=== PATIENT | male | born 1985 | race Caucasian/White ===

== ENCOUNTER 2016-11-16 09:51 | Emergency (ER) | payer OTHER ==
[~2016-11-16] VITALS: Ht 170.2 cm; Wt 94.0 kg
[~2016-11-16 09:51] MED LIST: DIAZ5 PO; LISI-360 PO; MOBI15TA PO; PROZ20CA11 PO; REME30TA PO; TRAM50 PO; ZITH250T PO
[2016-11-16 10:01] VITALS: BP 140/102; PULSE 84; RESP 16; TEMP 99.1; O2SAT 97
[2016-11-16] MEDS ORDERED: SODIUM CHLOR 0.9% 1000 ML INJ 1,000 ML IV ONE (10:15)
[2016-11-16] MEDS ORDERED: SODIUM CHLORIDE 0.9% FLUSH 5 ML FLUSH IVF PRN (10:15)
--- NOTE | 2016-11-16 10:19 | PD ---
HPI Chief Complaint: Anxiety Time Seen by Provider: 10:13 Travel History International Travel<30 days: No Contact w/Intl Traveler<30days: No Traveled to known affect area: No History of Present Illness HPI 31-year-old male with history of PTSD and anxiety, states that he has had financial issues at home recently and has been stressed out, started having palpitations, dizziness, and tingling in his fingers this morning. He took his own Ativan at home but after an hour, the symptoms did not subside. He denies any chest pains, shortness of breath, fevers, or any other symptoms. Modifying Factors: None Associated Signs & Symptoms: Palpitations, dizziness, tingling in the fingers Risk Factors: Anxiety history PFSH Social History Alcohol Use: Yes (2 beers per week ) Tobacco Use: No Substance Use: No Allergies-Medications (Allergen,Severity, Reaction): Coded Allergies: Penicillin (Verified Allergy, Intermediate, RASH AND HIVES, 11/16/16) Sulfa (Verified Allergy, Intermediate, RASH AND HIVES, 11/16/16) Reported Meds & Prescriptions Reported Meds & Active Scripts Active Reported Clonazepam 1 Mg Tab 1 Mg PO TID PRN Lexapro (Escitalopram Oxalate) 10 Mg Tab 10 Mg PO DAILY Remeron (Mirtazapine) 15 Mg Tab 15 Mg PO HS Lisinopril 20 Mg Tab 20 Mg PO HS Review of Systems Except as stated in HPI: all other systems reviewed are Neg Physical Exam Narrative GENERAL: Well-nourished, well-developed young white male patient in no acute distress. Awake, alert, oriented 3. SKIN: Warm and dry. HEAD: Normocephalic. EYES: No scleral icterus. No injection or drainage. NECK: Supple, trachea midline. CARDIOVASCULAR: Regular rate and rhythm without murmurs, gallops, or rubs. Pulses are present and equal bilaterally. RESPIRATORY: Breath sounds equal bilaterally. No accessory muscle use. GASTROINTESTINAL: Abdomen soft, non-tender, nondistended. MUSCULOSKELETAL: No cyanosis, or edema. BACK: Nontender without obvious deformity. No CVA tenderness. Data Data Last Documented VS Vital Signs Date Time Temp Pulse Resp B/P Pulse Ox O2 Delivery O2 Flow Rate FiO2 11/16/16 11:27 98 Room Air 11/16/16 10:01 99.1 84 16 140/102 Orders Electrocardiogram (11/16/16 10:15) Complete Blood Count With Diff (11/16/16 10:15) Comprehensive Metabolic Panel (11/16/16 10:15) Magnesium (Mg) (11/16/16 10:15) Chest, Single Ap (11/16/16 10:15) Ecg Monitoring (11/16/16 10:15) Iv Access Insert/Monitor (11/16/16 10:15) Oximetry (11/16/16 10:15) Sodium Chloride 0.9% Flush (Ns Flush) (11/16/16 10:15) Sodium Chlor 0.9% 1000 Ml Inj (Ns 1000 M (11/16/16 10:15) Labs Laboratory Tests Test 11/16/16 11:20 White Blood Count 6.7 TH/MM3 Red Blood Count 5.10 MIL/MM3 Hemoglobin 15.4 GM/DL Hematocrit 45.7 % Mean Corpuscular Volume 89.4 FL Mean Corpuscular Hemoglobin 30.2 PG Mean Corpuscular Hemoglobin 33.8 % Concent Red Cell Distribution Width 11.9 % Platelet Count 207 TH/MM3 Mean Platelet Volume 9.0 FL Neutrophils (%) (Auto) 64.4 % Lymphocytes (%) (Auto) 23.7 % Monocytes (%) (Auto) 5.2 % Eosinophils (%) (Auto) 3.7 % Basophils (%) (Auto) 3.0 % Neutrophils # (Auto) 4.4 TH/MM3 Lymphocytes # (Auto) 1.6 TH/MM3 Monocytes # (Auto) 0.3 TH/MM3 Eosinophils # (Auto) 0.2 TH/MM3 Basophils # (Auto) 0.2 TH/MM3 CBC Comment DIFF FINAL Differential Comment Sodium Level 142 MEQ/L Potassium Level 4.4 MEQ/L Chloride Level 106 MEQ/L Carbon Dioxide Level 25.5 MEQ/L Anion Gap 11 MEQ/L Blood Urea Nitrogen 16 MG/DL Creatinine 0.98 MG/DL Estimat Glomerular Filtration 90 ML/MIN Rate Random Glucose 100 MG/DL Calcium Level 8.8 MG/DL Magnesium Level 2.3 MG/DL Total Bilirubin 0.3 MG/DL Aspartate Amino Transf 43 U/L (AST/SGOT) Alanine Aminotransferase 91 U/L (ALT/SGPT) Alkaline Phosphatase 82 U/L Total Protein 8.3 GM/DL Albumin 3.8 GM/DL MDM Medical Decision Making Medical Screen Exam Complete: Yes Emergency Medical Condition: Yes Medical Record Reviewed: Yes Interpretation(s) EKG shows NSR, no ST elevation or depression, and no arrhythmias. No significant T-wave inversions. No QT prolongation or delta waves. Laboratory Tests Test 11/16/16 11:20 Basophils (%) (Auto) 3.0 % (0.0-2.0) Aspartate Amino Transf 43 U/L (15-37) (AST/SGOT) Alanine Aminotransferase 91 U/L (12-78) (ALT/SGPT) Total Protein 8.3 GM/DL (6.4-8.2) Last 24 hours Impressions Chest X-Ray 11/16/16 1015 Signed Impressions: Service Date/Time: Wednesday, November 16, 2016 10:31 - CONCLUSION: No acute cardiopulmonary abnormality is identified. Jarrell Medina MD Differential Diagnosis Palpitations, dizziness, finger paresthesiasanxiety attack versus electrolyte abnormalities versus vertigo Narrative Course Patient is feeling improved in the ER after having taken his own anxiety medications. EKG did not show any signs of dysrhythmias. Lab work did not show significant metabolic issues. His liver enzymes are mildly elevated and he states that he has had chronic problems with this before. I do not think that this is causing his current symptoms. At this point, my plan would be to release him with follow-up to primary care physician. Return for any worsening in symptoms as necessary. The plan has been discussed with him and he states understanding. Diagnosis Primary Impression: ANXIETY DISORDER, UNSPECIFIED Disposition: 01 DISCHARGE HOME Condition: Stable Do Rincon MD Nov 16, 2016 10:19
--- NOTE | 2016-11-16 10:42 | RADHPO ---
EXAM DATE/TIME: 11/16/2016 10:31 [facility] COMPARISON: No previous studies available for comparison. INDICATIONS : Chest pain, syncope. MEDICAL HISTORY : None. SURGICAL HISTORY : None. ENCOUNTER: Initial ACUITY: 1 day PAIN SCORE: 11/02 LOCATION: Bilateral chest FINDINGS: Portable AP view of the chest demonstrates a normal-sized cardiac silhouette. No effusion, consolidat ion, or pneumothorax is visualized. The bones and soft tissues demonstrate no acute abnormality. CONCLUSION: No acute cardiopulmonary abnormality is identified. Jarrell Medina MD on November 16, 2016 at 10:40 Board Certified Radiologist. This report was verified electronically.
[2016-11-16 11:27] VITALS: O2SAT 98
[2016-11-16 11:28] LABS: AUTOMATED NEUTROPHIL # 4.4 TH/MM3 (1.8-7.7); BASOPHIL # 0.2 TH/MM3 (0-0.2); EOSINOPHIL # 0.2 TH/MM3 (0-0.4); EOSINOPHIL % 3.7 % (0.0-4.0); HEMATOCRIT 45.7 % (39.0-51.0); HEMO FLAGS DIFF FINAL; LYMPH % 23.7 % (9.0-44.0); LYMPHOCYTE # 1.6 TH/MM3 (1.0-4.8); MEAN CELL VOLUME 89.4 FL (80.0-100.0); MEAN CORPUSCULAR HEMOGLOBIN 30.2 PG (27.0-34.0); MEAN CORPUSCULAR HGB CONC 33.8 % (32.0-36.0); MONO % 5.2 % (0.0-8.0); NEUT % 64.4 % (16.0-70.0); PLATELET COUNT 207 TH/MM3 (150-450); RED CELL DISTRIBUTION WIDTH 11.9 % (11.6-17.2); WHITE BLOOD COUNT 6.7 TH/MM3 (4.0-11.0)
[2016-11-16] MEDS ORDERED: LISI-515 PO (11:33)
[2016-11-16] MEDS ORDERED: LEXA10TA PO (11:33)
[2016-11-16] MEDS ORDERED: REME15TA PO (11:33)
[2016-11-16] MEDS ORDERED: CLON1TAB PO (11:33)
[2016-11-16 11:34] LABS: CHLORIDE 106 MEQ/L (98-107); POTASSIUM 4.4 MEQ/L (3.5-5.1); SODIUM (NA) 142 MEQ/L (136-145)
[2016-11-16 11:38] LABS: ANION GAP 11 MEQ/L (5-15); BICARBONATE 25.5 MEQ/L (21.0-32.0); BLOOD UREA NITROGEN 16 MG/DL (7-18); MAGNESIUM 2.3 MG/DL (1.5-2.5)
[2016-11-16 11:41] LABS: ALT (GPT) 91 U/L (12-78); AST (GOT) 43 U/L (15-37); GLOMERULAR FILTRATION RATE 90 ML/MIN (>89)
[2016-11-16 11:42] LABS: TOTAL BILIRUBIN ADULT 0.3 MG/DL (0.2-1.0)
[2016-11-16 11:43] LABS: ALKALINE PHOSPHATASE 82 U/L (45-117)
--- NOTE | 2016-11-17 05:48 | EKG ---
Date Performed: 11/16/2016 Time Performed: 10:53:06 PTAGE: 31 years EKG: Sinus rhythm Normal ECG NO PREVIOUS TRACING DOCTOR: Darryl Reyes Interpretating Date/Time 11/17/2016 05:45:59
== END 2016-11-16 12:08 | disposition home or self-care (01) ==
LOC: PHED 09:51
DX: F41.9 Anxiety disorder, unspecified (principal); R20.2 Paresthesia of skin; R00.2 Palpitations; Z79.899 Other long term (current) drug therapy
CPT/HCPCS: 71010; 80053; 83735; 85025; 93005; 96360; 99285; J7030

== ENCOUNTER 2017-02-11 08:46 | Emergency (ER) | payer OTHER ==
[~2017-02-11] VITALS: Ht 170.2 cm; Wt 94.0 kg
[~2017-02-11 08:46] MED LIST changes: +CLON1TAB PO; -DIAZ5 PO; +LEXA10TA PO; -LISI-360 PO; +LISI-515 PO; -MOBI15TA PO; -PROZ20CA11 PO; +REME15TA PO; -REME30TA PO; -TRAM50 PO; -ZITH250T PO
[2017-02-11 08:51] VITALS: BP 131/85; PULSE 64; RESP 16; TEMP 98.3; O2SAT 98
[2017-02-11] MEDS ORDERED: DIPHTH/TETANUS/ACEL PERTUSSIS (BOOSTER) 0.5 ML VIAL/PFS IM ONE (09:15)
[2017-02-11] MEDS ORDERED: CEPHALEXIN MONOHYDRATE 500 MG CAP PO ONE (09:15)
[2017-02-11] MEDS ORDERED: CIPROFLOXACIN 500 MG TAB PO ONE (09:15)
[2017-02-11] MEDS ORDERED: CIPR-9 PO (09:20)
[2017-02-11] MEDS ORDERED: CEPH-460 PO (09:20)
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
== END 2017-02-11 09:38 | disposition home or self-care (01) ==
LOC: PHEFT 08:46
DX: S91.331A Puncture wound without foreign body, right foot, initial encounter (principal); I10 Essential (primary) hypertension; Z23 Encounter for immunization; Z86.59 Personal history of other mental and behavioral disorders; W45.0XXA Nail entering through skin, initial encounter
CPT/HCPCS: 90471; 90715